=== PATIENT | male | born 1980 | race Caucasian/White ===

== ENCOUNTER 2024-03-26 16:24 | Emergency (ER) | payer MEDICAID, OTHER ==
[~2024-03-26] VITALS: Ht 180.3 cm; Wt 63.6 kg
[2024-03-26 17:57] LABS: Basophils # (auto) 0.1 10 ^3/uL (0-0.2); Basophils % (auto) 0.7 % (0.0-2.0); Eosinophils # (auto) 0 10 ^3/uL (0-0.8); Eosinophils % (auto) 0.3 % (0.0-7.0); Hematocrit 51.3 % (41.0-53.0); Hemoglobin 16.7 g/dL (13.5-17.5); Lymphocytes # (auto) 1.3 10 ^3/uL (0.4-5.4); Lymphocytes % (auto) 17.1 % (10.0-50.0); Mean Corpuscular Hemoglobin 31.3 pg (28.0-32.0); Mean Corpuscular Hgb Conc. 32.5 g/dL (32.0-36.0); Mean Corpuscular Volume 96.5 fL (80.0-100.0); Monocytes # (auto) 0.6 10 ^3/uL (0-1.3); Monocytes % (auto) 7.3 % (0.0-12.0); Neutrophils # (auto) 5.9 10 ^3/uL (1.6-8.6); Neutrophils % (auto) 74.6 % (37.0-80.0); Nucleated Red Blood Cells % 0.1 %; Red Blood Cells 5.32 10^6/uL (4.5-5.90); Red Cell Distribution Width 15.9 % (11.8-14.3); White Blood Cell 7.9 10^3/uL (4.4-10.8)
[2024-03-26 18:02] LABS: Chloride 106 mmol/L (98-107); Sodium 140 mmol/L (136-145)
[2024-03-26 18:03] LABS: Anion Gap 5 (5-15); Calcium 9.5 mg/dL (8.5-10.1); Carbon Dioxide 29 mmol/L (20-30)
[2024-03-26 18:08] LABS: BUN/Creatinine Ratio 13.6 (10.0-20.0); Blood Urea Nitrogen 14 mg/dL (9-23); Glucose 151 mg/dL (74-106)
[2024-03-26 18:09] LABS: Blood Alcohol 199.9 mg/dL (<10)
[2024-03-26 20:01] LABS: Amphetamine Screen, Urine Neg (NEGATIVE); Benzodiazephine Screen, Urine Neg (NEGATIVE)
[2024-03-26 20:02] LABS: Barbiturate Scree,Urine Neg (NEGATIVE); Cannabinoid Screen, Urine Neg (NEGATIVE); Cocaine Screen, Urine Neg (NEGATIVE); Opiate Scree,Urine Neg (NEGATIVE); Phencyclidine Screen, Urine Neg (NEGATIVE)
[2024-03-26 20:40] VITALS: PULSE 88; RESP 16; O2SAT 97
[2024-03-26] MEDS: SERTRALINE HCL 50 MG TAB PO ONE (22:43)
[2024-03-27 04:10] VITALS: PULSE 72; RESP 16; O2SAT 96
[2024-03-27 07:45] VITALS: PULSE 72; RESP 16; O2SAT 96
[2024-03-27] MEDS: SODIUM CHLORIDE 0.9% 1,000 ML IV ONE (08:38)
[2024-03-27] MEDS: ONDANSETRON HCL 4 MG/2 ML VIAL IV ONE (08:40)
[2024-03-27] MEDS: SERTRALINE HCL 50 MG TAB PO SCH (10:16)
[2024-03-27 17:27] VITALS: BP 140/98; PULSE 64; RESP 18; TEMP 98.3; O2SAT 98
== END 2024-03-27 17:35 ==
LOC: ER 16:24 → EDBD 16:24 → ER 03-27 17:35
DX: R45.851 Suicidal ideations (principal); F32.9 Major depressive disorder, single episode, unspecified; I10 Essential (primary) hypertension; F20.9 Schizophrenia, unspecified; F17.210 Nicotine dependence, cigarettes, uncomplicated; F10.129 Alcohol abuse with intoxication, unspecified; Z79.899 Other long term (current) drug therapy; Y90.6 Blood alcohol level of 120-199 mg/100 ml
CPT/HCPCS: 36415; 80048; 80307; 80320; 85025; 96361; 96374; 99285; J2405; J7030